=== PATIENT | male | born 1980 | race Caucasian/White ===

== ENCOUNTER → 2017-05-26 08:58 | Outpatient (CLI) | payer OTHER, SELFPAY ==
--- NOTE | 2017-05-26 09:01 | RAD_ITS ---
STUDY: X-RAY - ESOPHAGUS (BARIUM SWALLOW) WITH FLUOROSCOPY REASON FOR EXAM: Male, 37 years old. Dysphagia. TECHNIQUE: 21 view(s) of the esophagus were obtained following swallowing of barium. FLUOROSCOPY TIME (if supplied): (0:30) minutes/seconds COMPARISON: None. FINDINGS: There is no demonstrated esophageal foreign body. There is no demonstrated stricture or mucosal abnormality. Normal gastroesophageal junction, without a demonstrated hiatal hernia. The patient ingest a 12 mm tablet of barium without any difficulty. Normal visualized aortic arch and descending thoracic aorta. Normal visualized pulmonary parenchyma. Normal visualized osseous structures of the thorax. Immediately following the procedure, the patient experienced a seizure. RAD/Esophagus Only IMPRESSION: Normal plain film x-ray examination (barium swallow) of the esophagus. Electronically Signed: Terry Riddle MD at 10:02 EST Tel [phone], Service support ,
== END ==
PROVIDERS: Family Provider Student in an Organized Health Care Education/Training Program; PCP Student in an Organized Health Care Education/Training Program; Visit Provider Otolaryngology Otolaryngology/Facial Plastic Surgery
DX: R13.10 Dysphagia, unspecified (principal)
CPT/HCPCS: 74220

== ENCOUNTER 2017-07-06 19:23 | Emergency (ER) | payer OTHER, SELFPAY ==
[2017-07-06 19:24] VITALS: BP 148/100; PULSE 126; RESP 20; TEMP 36.8; O2SAT 95; BMI 34.9
--- NOTE | 2017-07-06 19:33 | RAD_ITS ---
STUDY: X-RAY - LEFT HAND REASON FOR EXAM: Male, 37 years old. Fall TECHNIQUE: 3 view(s) of the hand. COMPARISON: None. FINDINGS: Normal radiocarpal articulation. Normal distal radioulnar joint. Normal visualized carpal bones. Normal carpal articulations Normal carpometacarpal articulation of the thumb. Normal second through fifth carpometacarpal joints. Normal metacarpi. Normal metacarpophalangeal joint of the thumb. Normal interphalangeal joint of the thumb. Normal proximal and distal phalanges of the thumb. Normal metacarpophalangeal joints of the second through fifth fingers. Normal proximal and distal interphalangeal joints of the second through fifth fingers. Normal phalanges of the second through fifth fingers. The soft tissue structures are unremarkable. RAD/Hand Min 3 Views IMPRESSION: Normal x-ray examination of the hand. Electronically Signed: Ellis Hernandez MD at 20:05 EDT , Service support ,
--- NOTE | 2017-07-06 19:33 | RAD_ITS ---
STUDY: X-RAY - LEFT WRIST REASON FOR EXAM: Male, 37 years old. Fall TECHNIQUE: 3 view(s) of the wrist were obtained. COMPARISON: None. FINDINGS: Normal visualized distal radius and ulna. Normal radiocarpal articulation. Normal distal radioulnar articulation. Normal carpal bones. Normal carpal articulations. Normal carpometacarpal articulation of the thumb. Normal second through fifth carpometacarpal articulations. Normal visualized metacarpal bones. The soft tissue structures are unremarkable. RAD/Wrist min 3 Views IMPRESSION: Normal x-ray examination of the wrist. Electronically Signed: Ellis Hernandez MD at 20:05 EDT , Service support ,
--- NOTE | 2017-07-06 19:40 | RAD_ITS ---
STUDY: X-RAY - LEFT RADIUS AND ULNA REASON FOR EXAM: Male, 37 years old. Fall TECHNIQUE: 3 view(s) of the forearm. COMPARISON: None. FINDINGS: There is no demonstrated soft tissue swelling. Anterior humeral line and radiocapitellar line are preserved. Normal visualized radius. Normal visualized ulna. RAD/Forearm 2 Views IMPRESSION: Normal x-ray examination of the radius and ulna. Electronically Signed: Ellis Hernandez MD at 20:04 EDT , Service support ,
--- NOTE | 2017-07-06 20:25 | ED.VISSUMM ---
- ER Visit Summary Date of Service: 07/06/17 Chief Complaint: Left wrist injury History of Present Illness: The patient is a 37 M presenting for evaluation secondary to left wrist injury. Patient was roller skating today and suffered a fall onto left outstretched hand. Denies hitting his head or loss of consciousness. Patient states that he feels popping and cracking in his wrist when he tries to range it. Denies any other injuries. Physical Examination: Primary survey: Airway is patent, breath sounds equal bilateral, central peripheral pulses 2+ and symmetric, GCS 15 out of 15. Vitals within normal limits. Secondary survey: General: Well-nourished well-developed no acute distress Head: Normocephalic atraumatic Eyes: PERRLA, EOMI ENT: TMs clear no hemotympanum no drainage Neck: Nontender full range of motion, no step-offs noted Heart: Regular rate and rhythm no murmurs Lungs: Respirations nondistressed, lung sounds clear to auscultation bilaterally, chest nontender, normal chest excursion bilaterally Abdomen: Soft nontender nondistended normal bowel sounds no palpable abdominal masses Back: Nontender no step-offs noted Extremities: Examination of the patient's left upper extremity shows some diffuse edema over the wrist and hand with diffuse tenderness palpation that is nonlocalizing. Sensation intact distally with normal capillary refill and normal pulses. Skin: Normal color no trauma Neuro: Alert and oriented ?4, GCS 15 out of 15, no lateralizing neurological deficits. Test Results: Wrist, forearm, and hand x-rays negative per radiology Emergency Department Course and Treatment: Patient presented secondary to a fall on outstretched hand. Radiographs found to be negative. Patient does seem to have some pain over his anatomical snuffbox is or is at least some concern for the possibility of an occult scaphoid injury. Patient will be placed on a thumb spica splint and instructed to follow-up for repeat x-rays in 10-14 days. Disposition: Discharge Impression: 1. Left wrist sprain secondary to roller skating injury This note was generated with [employer] dictation software. It may contain incorrect words, spelling, and punctuation that were not noted in review of the chart prior to signing ED Disposition - Plan for ED Patient: Disposition: Home or Assisted Living Chief Complaint: Upper Extremity Injury Diagnosis: Left wrist sprain Instructions: ED Fx Wrist Navicular Poss Referrals: Colin Mccollum DO [Primary Care Provider] - 1-2 Weeks
--- NOTE | 2017-07-06 20:36 | ED.DCSUM_ITS ---
- ER Visit Summary Date of Service: 07/06/17 Chief Complaint: Left wrist injury History of Present Illness: The patient is a 37 M presenting for evaluation secondary to left wrist injury. Patient was roller skating today and suffered a fall onto left outstretched hand. Denies hitting his head or loss of consciousness. Patient states that he feels popping and cracking in his wrist when he tries to range it. Denies any other injuries. Physical Examination: Primary survey: Airway is patent, breath sounds equal bilateral, central peripheral pulses 2+ and symmetric, GCS 15 out of 15. Vitals within normal limits. Secondary survey: General: Well-nourished well-developed no acute distress Head: Normocephalic atraumatic Eyes: PERRLA, EOMI ENT: TMs clear no hemotympanum no drainage Neck: Nontender full range of motion, no step-offs noted Heart: Regular rate and rhythm no murmurs Lungs: Respirations nondistressed, lung sounds clear to auscultation bilaterally , chest nontender, normal chest excursion bilaterally Abdomen: Soft nontender nondistended normal bowel sounds no palpable abdominal masses Back: Nontender no step-offs noted Extremities: Examination of the patient's left upper extremity shows some diffuse edema over the wrist and hand with diffuse tenderness palpation that is nonlocalizing. Sensation intact distally with normal capillary refill and normal pulses. Skin: Normal color no trauma Neuro: Alert and oriented ?4, GCS 15 out of 15, no lateralizing neurological deficits. Test Results: Wrist, forearm, and hand x-rays negative per radiology Emergency Department Course and Treatment: Patient presented secondary to a fall on outstretched hand. Radiographs found to be negative. Patient does seem to have some pain over his anatomical snuffbox is or is at least some concern for the possibility of an occult scaphoid injury. Patient will be placed on a thumb spica splint and instructed to follow-up for repeat x-rays in 10-14 days. Disposition: Discharge Impression: 1. Left wrist sprain secondary to roller skating injury This note was generated with [employer] dictation software. It may contain incorrect words, spelling, and punctuation that were not noted in review of the chart prior to signing ED Disposition - Plan for ED Patient: Disposition: Home or Assisted Living Chief Complaint: Upper Extremity Injury Diagnosis: Left wrist sprain Instructions: ED Fx Wrist Navicular Poss Referrals: Colin Mccollum DO [Primary Care Provider] - 1-2 Weeks
== END 2017-07-06 20:55 | disposition home or self-care (01) ==
PROVIDERS: Emergency Provider Emergency Medicine; Family Provider Student in an Organized Health Care Education/Training Program; PCP Student in an Organized Health Care Education/Training Program
DX: S63.502A Unspecified sprain of left wrist, initial encounter (principal); R56.9 Unspecified convulsions; Z79.899 Other long term (current) drug therapy; W18.30XA Fall on same level, unspecified, initial encounter; Y93.51 Activity, roller skating (inline) and skateboarding; Y92.89 Other specified places as the place of occurrence of the external cause; Y99.8 Other external cause status
CPT/HCPCS: 73090; 73110; 73130; 99283

== ENCOUNTER 2017-11-06 22:11 | Emergency (ER) | payer OTHER, SELFPAY ==
[2017-11-06 22:12] VITALS: BP 143/88; PULSE 88; RESP 18; TEMP 36.8; O2SAT 98; BMI 33.9
--- NOTE | 2017-11-06 22:50 | RAD_ITS ---
STUDY: X-RAY - LEFT KNEE REASON FOR EXAM: Male, 37 years old. Pain TECHNIQUE: 4 view(s) of the knee. COMPARISON: Previous study of 01/01/2017 FINDINGS: Normal visualized distal femur. Normal visualized proximal tibia and fibula. Normal proximal tibiofibular articulation. There is mild joint space narrowing of the medial knee compartment. Normal lateral femorotibial compartment. Normal patellofemoral articulation. The soft tissue structures are unremarkable. RAD/Knee 4 or More Views IMPRESSION: Mild joint space narrowing of the medial knee compartment. Electronically Signed: Qamar Diego MD at 23:15 EDT , Service support ,
--- NOTE | 2017-11-06 23:29 | ED.DCSUM_ITS ---
- ER Visit Summary Date of Service: 11/06/17 Chief Complaint: Left knee pain History of Present Illness: The patient is a 37 M who presents with left knee pain. It is been present for about 1 month. However it was worse tonight. He does note that he has to bend over a lot for work. He denies paresthesias weakness loss of function. No specific injury that he recalls. Physical Examination: Afebrile vitals are normal Heart regular Patient has active full range of motion of the left knee there is no appreciable effusion he has focal tenderness to the quadriceps tendon indicates this is where his pain is greatest he has an easily palpable dorsalis pedis pulse with brisk capillary refill and normal sensation light touch Test Results: Knee x-ray shows mild joint space narrowing of the medial compartment Emergency Department Course and Treatment: Knee x-ray is essentially unremarkable. Patient does have focal tenderness along the quadriceps tendon. I do think this is related to quadriceps strain. He was given an Ravi wrap. He was instructed on supportive care. He was given a prescription for naproxen. He was advised on rest ice and elevation. He understands return for new or worsening symptoms otherwise to follow-up as an outpatient he was discharged home. Treatment Plan: [] Disposition: Discharge Impression: Left quadriceps strain This note was generated with [employer] dictation software. It may contain incorrect words, spelling, and punctuation that were not noted in review of the chart prior to signing ED Disposition - Plan for ED Patient: Chief Complaint: Lower Extremity Injury Referrals: Colin Mccollum DO [Primary Care Provider] -
--- NOTE | 2017-11-06 23:29 | ED.DEP ---
ED Disposition - Plan for ED Patient: Chief Complaint: Lower Extremity Injury Instructions: ED Strain Muscle Ext Prescriptions: Naproxen [Naprosyn] 500 mg PO BID #20 tab Referrals: Colin Mccollum DO [Primary Care Provider] -
[2017-11-06 23:39] VITALS: RESP 16
--- NOTE | 2017-11-06 23:39 | ED.RN ---
REVIEWED D/C INSTRUCTIONS, FOLLOW UP CARE, PRESCRIPTION, AND S/S THAT WOULD WARRANT A RETURN TO THE ED WITH PT. PT VERBALIZED AN UNDERSTANDING AND DENIES FURTHER QUESTIONS FOR THIS RN. PT SKIN P/W/D, RESP EVEN AND UNLABORED, PT A&O X 3, NO DISTRESS NOTED. PT AMBULATED OUT OF ED, GAIT STEADY.
== END 2017-11-06 23:41 | disposition home or self-care (01) ==
PROVIDERS: Emergency Provider Emergency Medicine; Family Provider Student in an Organized Health Care Education/Training Program; PCP Student in an Organized Health Care Education/Training Program
DX: S76.112A Strain of left quadriceps muscle, fascia and tendon, initial encounter (principal); Z79.899 Other long term (current) drug therapy; X50.3XXA Overexertion from repetitive movements, initial encounter; X50.1XXA Overexertion from prolonged static or awkward postures, initial encounter; Y93.89 Activity, other specified; Y92.89 Other specified places as the place of occurrence of the external cause; Y99.0 Civilian activity done for income or pay
CPT/HCPCS: 73564; 99282

== ENCOUNTER 2018-05-22 11:38 | Emergency (ER) | payer OTHER, SELFPAY ==
[2018-05-22 11:40] VITALS: BP 157/93; PULSE 71; RESP 18; TEMP 36.7; O2SAT 99; BMI 33.2
--- NOTE | 2018-05-22 12:26 | NURSING ---
PT LEFT WITHOUT BEING SEEN, DID NOT WANT TO WAIT FOR
--- NOTE | 2018-05-22 12:31 | ED.VISSUMM ---
- ER Visit Summary Date of Service: 05/22/18 Chief Complaint: Patient left prior to being seen or discharge. History of Present Illness: The patient is a 38 M [] Physical Examination: [] Test Results: [] Emergency Department Course and Treatment: [] Treatment Plan: [] Disposition: [] Impression: Left prior to evaluation No ER physician charge This note was generated with [employer] dictation software. It may contain incorrect words, spelling, and punctuation that were not noted in review of the chart prior to signing ED Disposition - Plan for ED Patient: Chief Complaint: Head Injury Referrals: Colin Mccollum DO [Primary Care Provider] -
== END 2018-05-22 12:33 | disposition left against medical advice (07) ==
LOC: ED 12:29
PROVIDERS: Emergency Provider Emergency Medicine; Family Provider Student in an Organized Health Care Education/Training Program; PCP Student in an Organized Health Care Education/Training Program
DX: R51 Headache (principal)
CPT/HCPCS: 99281

== ENCOUNTER 2018-07-01 10:19 | Emergency (ER) | payer OTHER, SELFPAY ==
[2018-07-01 10:20] VITALS: BP 150/102; BP 180/88; PULSE 95; RESP 17; TEMP 36.7; O2SAT 98; BMI 37.0
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
== END 2018-07-01 11:36 | disposition home or self-care (01) ==
PROVIDERS: Emergency Provider Emergency Medicine; Family Provider Student in an Organized Health Care Education/Training Program; PCP Student in an Organized Health Care Education/Training Program
DX: S16.1XXA Strain of muscle, fascia and tendon at neck level, initial encounter (principal); S39.012A Strain of muscle, fascia and tendon of lower back, initial encounter; F20.9 Schizophrenia, unspecified; Z79.899 Other long term (current) drug therapy; V43.52XA Car driver injured in collision with other type car in traffic accident, initial encounter; Y93.I9 Activity, other involving external motion; Y92.410 Unspecified street and highway as the place of occurrence of the external cause; Y99.8 Other external cause status
CPT/HCPCS: 72040; 72100; 99284

== ENCOUNTER 2018-07-15 10:19 | Emergency (ER) | payer OTHER, SELFPAY ==
[2018-07-15 10:20] VITALS: BP 145/115; PULSE 114; RESP 18; TEMP 36.7; O2SAT 98; BMI 33.2
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
--- NOTE | 2018-07-15 10:39 | ED.VIS.GEN ---
History of Present Illness Chief Complaint: Confusion Informant: Patient Onset: Today Context: Sudden Onset - after turning head/body while standing to talk to his Quality: see below Location: head Current Severity: Mild Maximum Severity: Severe Worsened by: changing position/turning head Relieved by: remaining still Associated Symptoms: anxiety. mild frontal headache. tingling in toes only. Narrative: Patient states he has a history of panic disorder and PTSD, he was in hindu suddenly turned to talk to his and states that all of a sudden he felt like he became disconnected with himself and lost his life. He states he immediately felt dizziness and a sensation of movement, when walking he felt off balance. It made him feel very bad in general. He had no focal peripheral neurologic symptoms until after he became very anxious and developed some mild tingling in his toes that are improved now. He took an Ativan, states that overall he is improved but still has some of the dizziness symptoms when he turns his head. States he was diagnosed with influenza 1-2 weeks ago and was treated with Tamiflu. States he is better now. He has no ear pain or tinnitus or discharge from his ears. He does have a mild headache, no neck pain. He had no loss of/lapse in consciousness. He denies any chest or abdominal symptoms. He is not an alcoholic. Capacity - Capacity Assessment Tool Can the patient make a choice & communicate that choice?: Yes Can the patient understand benefits, risks and alternatives?: Yes Can the patient make a logical, rational choice?: Yes Is the choice the patient makes consistent w/ their values?: Yes Is there an impending, emergent risk to the patient?: No Does the patient have an Advance Directive?: No Is there a Surrogate Available?: Yes i.e. close relative (spouse, child, parent, sibling)?: Yes - Present during HPI/exam/explanations - Past Medical History (1) Post traumatic stress disorder (PTSD) Status: Chronic (2) Anxiety Status: Chronic Past Medical History - Allergies and Home Meds Allergies/Adverse Reactions: Allergies adhesive tape Allergy (Verified 07/15/18 10:22) Rash Milk Containing Products Adverse Reaction (Verified 07/15/18 10:22) Diarrhea Primary Care Physician: Colin Mccollum DO [Primary Care Provider] - Lives: With Family Smoking Status: Never smoker Review of Systems General: Reports: Malaise. Denies: Chills, Fever, Sweats Eyes: Denies: Visual changes - bilaterally, Diplopia ENT: Denies: Rhinorrhea, Sore throat Cardiovascular: Denies: Chest pain, Palpitations Respiratory: Denies: Dyspnea, Cough, Dyspnea on exertion Gastrointestinal: Denies: Abdominal pain, Nausea, Vomiting, Diarrhea, Melena, Hematochezia Genitourinary: Denies: Dysuria, Hematuria, Frequency Musculoskeletal: Denies: Neck pain, Back pain, Extremity Pain Skin: Denies: Rash, Wounds Neurological: Reports: Headache, Parasthesia, - - dizziness. see HPI.. Denies: Weakness Psych: Reports: Anxiety. Denies: Suicidal thoughts Physical Exam Vital Signs/Narrative: Vital Signs Temp Pulse Resp BP Pulse Ox 07/15/18 10:20 98.1 F 114 H 18 145/115 H 98 Inital Vital Signs reviewed: Yes General: Well nourished, Well developed, No Acute Distress Head: Normocephalic, Atraumatic Eyes: Perrl, EOMI - +horiz nystagmus bilat, and is somewhat rotatory when present. no vertical nystagmus. ENT: Moist mucous membranes, No rhinorrhea, TM's clear. Negative for: Nasal congestion Neck: Supple, Nontender, No lymphadenopathy, No JVD, - - no carotid bruits. Cardiovascular: Regular rate, Regular rhythm, No murmurs, Normal S1, Normal S2. Negative for: Tachycardia Respiratory: No distress, CTA bilaterally, Chest nontender Abdomen: Soft, Nontender, Nondistended, Normal bowel sounds Back: Nontender, Normal Inspection Extremities: Nontender, No edema Skin: Normal color, No rash Neurological: Alert, Oriented x3, Cranial nerves II-XII grossly intact, Normal Strength, Normal Sensation, Normal DTR, Normal Gait, - - normal Romberg. Normal FTN and HTS bilat. Psychological: Normal affect, Normal Mood Diagnostic/Tx/Re-eval Impressions Brain CT 07/15/18 10:39 IMPRESSION: Normal unenhanced CT scan of the brain. Mild chronic sinusitis. Electronically Signed: Bridgett Neely MD at 11:40 EDT Tel , Service support , 07/15/18 10:39 Brain/Head without Contrast [CT] Stat Laboratory Results 07/15/18 10:55 Sodium 139 Potassium 4.1 Chloride 107 Carbon Dioxide 27.0 Anion Gap 5 BUN 13 Creatinine 0.98 Estim Creat Clear Calc 113.28 Est GFR (MDRD) Af Amer 110 Est GFR (MDRD) Non-Af 91 BUN/Creatinine Ratio 13.2 Glucose 114 H Calcium 9.1 - Medical Decision Making Labs and brain imaging are unremarkable. Patient was given a meclizine and continues to feel little better. The Ativan that he took is actually good treatment for peripheral vertigo which is probably why he was doing so much better upon arrival to the ER. I reassure him. I think this was likely peripheral vertigo caused by reactive vestibular neuronitis. Will prescribe him meclizine, advised that he may also use his Lorazepam for further symptoms if needed, and to follow-up with his doctor if it persists. He is comfortable with this plan. ED Disposition - Plan for ED Patient: Disposition: Home or Assisted Living Diagnosis: Peripheral vertigo, unspecified, Anxiety Instructions: Understanding Dizziness, Balance Problems, and Fainting, ED Vertigo Unspecified Prescriptions: Meclizine HCl 25 mg PO Q8H PRN #16 tab PRN Reason: Vertigo Referrals: Colin Mccollum DO [Primary Care Provider] - 1 Week if not improving
--- NOTE | 2018-07-15 10:43 | ED.DCSUM_ITS ---
History of Present Illness Chief Complaint: Confusion Informant: Patient Onset: Today Context: Sudden Onset - after turning head/body while standing to talk to his Quality: see below Location: head Current Severity: Mild Maximum Severity: Severe Worsened by: changing position/turning head Relieved by: remaining still Associated Symptoms: anxiety. mild frontal headache. tingling in toes only. Narrative: Patient states he has a history of panic disorder and PTSD, he was in rastafarian suddenly turned to talk to his and states that all of a sudden he felt like he became disconnected with himself and lost his life. He states he immediately felt dizziness and a sensation of movement, when walking he felt off balance. It made him feel very bad in general. He had no focal peripheral neurologic symptoms until after he became very anxious and developed some mild tingling in his toes that are improved now. He took an Ativan, states that overall he is improved but still has some of the dizziness symptoms when he turns his head. States he was diagnosed with influenza 1-2 weeks ago and was treated with Tamiflu. States he is better now. He has no ear pain or tinnitus or discharge from his ears. He does have a mild headache, no neck pain. He had no loss of/lapse in consciousness. He denies any chest or abdominal symptoms. He is not an alcoholic. Capacity - Capacity Assessment Tool Can the patient make a choice & communicate that choice?: Yes Can the patient understand benefits, risks and alternatives?: Yes Can the patient make a logical, rational choice?: Yes Is the choice the patient makes consistent w/ their values?: Yes Is there an impending, emergent risk to the patient?: No Does the patient have an Advance Directive?: No Is there a Surrogate Available?: Yes i.e. close relative (spouse, child, parent, sibling)?: Yes - Present during HPI/exam/explanations - Past Medical History (1) Post traumatic stress disorder (PTSD) Status: Chronic (2) Anxiety Status: Chronic Past Medical History - Allergies and Home Meds Allergies/Adverse Reactions: Allergies adhesive tape Allergy (Verified 07/15/18 10:22) Rash Milk Containing Products Adverse Reaction (Verified 07/15/18 10:22) Diarrhea Primary Care Physician: Colin Mccollum DO [Primary Care Provider] - Lives: With Family Smoking Status: Never smoker Review of Systems General: Reports: Malaise. Denies: Chills, Fever, Sweats Eyes: Denies: Visual changes - bilaterally, Diplopia ENT: Denies: Rhinorrhea, Sore throat Cardiovascular: Denies: Chest pain, Palpitations Respiratory: Denies: Dyspnea, Cough, Dyspnea on exertion Gastrointestinal: Denies: Abdominal pain, Nausea, Vomiting, Diarrhea, Melena, Hematochezia Genitourinary: Denies: Dysuria, Hematuria, Frequency Musculoskeletal: Denies: Neck pain, Back pain, Extremity Pain Skin: Denies: Rash, Wounds Neurological: Reports: Headache, Parasthesia, - - dizziness. see HPI.. Denies: Weakness Psych: Reports: Anxiety. Denies: Suicidal thoughts Physical Exam Vital Signs/Narrative: Vital Signs Temp Pulse Resp BP Pulse Ox 07/15/18 10:20 98.1 F 114 H 18 145/115 H 98 Inital Vital Signs reviewed: Yes General: Well nourished, Well developed, No Acute Distress Head: Normocephalic, Atraumatic Eyes: Perrl, EOMI - +horiz nystagmus bilat, and is somewhat rotatory when present. no vertical nystagmus. ENT: Moist mucous membranes, No rhinorrhea, TM's clear. Negative for: Nasal congestion Neck: Supple, Nontender, No lymphadenopathy, No JVD, - - no carotid bruits. Cardiovascular: Regular rate, Regular rhythm, No murmurs, Normal S1, Normal S2. Negative for: Tachycardia Respiratory: No distress, CTA bilaterally, Chest nontender Abdomen: Soft, Nontender, Nondistended, Normal bowel sounds Back: Nontender, Normal Inspection Extremities: Nontender, No edema Skin: Normal color, No rash Neurological: Alert, Oriented x3, Cranial nerves II-XII grossly intact, Normal Strength, Normal Sensation, Normal DTR, Normal Gait, - - normal Romberg. Normal FTN and HTS bilat. Psychological: Normal affect, Normal Mood Diagnostic/Tx/Re-eval Impressions Brain CT 07/15/18 10:39 IMPRESSION: Normal unenhanced CT scan of the brain. Mild chronic sinusitis. Electronically Signed: Bridgett Neely MD at 11:40 EDT Tel , Service support , 07/15/18 10:39 Brain/Head without Contrast [CT] Stat Laboratory Results 07/15/18 10:55 Sodium 139 Potassium 4.1 Chloride 107 Carbon Dioxide 27.0 Anion Gap 5 BUN 13 Creatinine 0.98 Estim Creat Clear Calc 113.28 Est GFR (MDRD) Af Amer 110 Est GFR (MDRD) Non-Af 91 BUN/Creatinine Ratio 13.2 Glucose 114 H Calcium 9.1 - Medical Decision Making Labs and brain imaging are unremarkable. Patient was given a meclizine and c ontinues to feel little better. The Ativan that he took is actually good treatment for peripheral vertigo which is probably why he was doing so much better upon arrival to the ER. I reassure him. I think this was likely peripheral vertigo caused by reactive vestibular neuronitis. Will prescribe him meclizine, advised that he may also use his Lorazepam for further symptoms if needed, and to follow-up with his doctor if it persists. He is comfortable with this plan. ED Disposition - Plan for ED Patient: Disposition: Home or Assisted Living Diagnosis: Peripheral vertigo, unspecified, Anxiety Instructions: Understanding Dizziness, Balance Problems, and Fainting, ED Verti go Unspecified Prescriptions: Meclizine HCl 25 mg PO Q8H PRN #16 tab PRN Reason: Vertigo Referrals: Colin Mccollum DO [Primary Care Provider] - 1 Week if not improving
[2018-07-15] MEDS: Meclizine HCl 25 MG Tablet PO (11:01)
[2018-07-15 11:31] LABS: Anion Gap 5 (5-15); BUN 13 mg/dL (7-18); BUN/Creat Ratio 13.2 RATIO (10-20); Calcium,Total 9.1 mg/dL (8.5-10.1); Chloride 107 mmol/L (98-107); Creatinine, Serum 0.98 mg/dL (0.70-1.30); EST Glomerular Filtration Rate 91 mL/min (>60); Est Glom Filt Rate - Afr Amer 110 mL/min (>60); Estimated Creatinine Clearance 113.28 ml/min; Glucose 114 mg/dL (74-106); Potassium 4.1 mmol/L (3.5-5.1); Sodium Level 139 mmol/L (136-145)
[2018-07-15 12:22] VITALS: BP 152/98; PULSE 71; RESP 14; O2SAT 98
== END 2018-07-15 12:23 | disposition home or self-care (01) ==
PROVIDERS: Emergency Provider Emergency Medicine; Family Provider Student in an Organized Health Care Education/Training Program; PCP Student in an Organized Health Care Education/Training Program
DX: H81.399 Other peripheral vertigo, unspecified ear (principal); F41.9 Anxiety disorder, unspecified; F43.10 Post-traumatic stress disorder, unspecified; Z79.51 Long term (current) use of inhaled steroids; Z79.899 Other long term (current) drug therapy
CPT/HCPCS: 70450; 80048; 99284; A4216

== ENCOUNTER 2018-12-11 23:57 | Emergency (ER) | payer OTHER, SELFPAY ==
[2018-12-11 23:58] VITALS: BP 153/74; PULSE 84; RESP 18; TEMP 36.1; O2SAT 95; BMI 30.1
--- NOTE | 2018-12-12 00:09 | ED.RN ---
Addendum entered by Gretta Allred 12/12/18 00:25: HRO, OFFICER ANA INFORMED OF PT'S TRIAGE NOTE AND WILL FOLLOW UP WITH CRISIS AT THIS TIME. RUTH MILES,RN, CHARGE NURSE AWARE OF SAME. Original Note: PT WAS SITTING IN TRIAGE WAITING FOR HIS ROOM WHEN PT GOT UP OUT OF CHAIR I'M LEAVING WHEN TOLD THE ROOM IS ALMOST READY PT STATED WELL I'M LEAVING AND LEFT THE BUILDING.
== END 2018-12-12 00:15 | disposition left against medical advice (07) ==
LOC: ED 12-12 01:15
PROVIDERS: Emergency Provider Emergency Medicine; Family Provider Student in an Organized Health Care Education/Training Program; PCP Student in an Organized Health Care Education/Training Program
DX: F41.9 Anxiety disorder, unspecified (principal)

== ENCOUNTER 2019-01-15 19:26 | Emergency (ER) | payer OTHER, SELFPAY ==
[2019-01-15 19:27] VITALS: BP 154/84; PULSE 101; RESP 18; TEMP 37; O2SAT 96; BMI 34.6
--- NOTE | 2019-01-15 20:10 | RAD_ITS ---
STUDY: X-RAY - RIGHT KNEE REASON FOR EXAM: Male, 38 years old. Right knee injury TECHNIQUE: 4 view(s) of the knee. COMPARISON: None. FINDINGS: Normal visualized distal femur. Normal visualized proximal tibia and fibula. Normal proximal tibiofibular articulation. Normal medial femorotibial compartment. Normal lateral femorotibial compartment. Normal patellofemoral articulation. The soft tissue structures are unremarkable. RAD/Knee 4 or More Views IMPRESSION: Normal x-ray examination of the knee. Electronically Signed: Micah Mcleod MD at 20:41 EDT , Service support ,
--- NOTE | 2019-01-15 21:32 | ED.VISSUMM ---
- ER Visit Summary Date of Service: 01/15/19 Chief Complaint: [Injury to her right knee] History of Present Illness: The patient is a 38 M [to the emergency department with pain in his right knee that started this afternoon. Patient apparently was walking when he had a nonepileptic seizure which caused him to fall and injure his right knee. Patient was unable to bear weight afterwards and EMS brought him in for evaluation. Patient has a history of nonepileptic seizures as well as posttraumatic stress disorder as well as ADHD and depression. Patient is not sure exactly what happened to the knee.] Physical Examination: [HEENT-PERRLA, EOMI. Cranial nerves II through XII grossly intact. TMs clear. Mucous membranes moist. No adenopathy. No external evidence of trauma to his head. Patient has no C-spine tenderness on palpation. Cardiovascular-regular rate and rhythm without murmur or ectopy Lungs-clear to auscultation, chest wall stable without crepitus or subcu emphysema Abdomen-normoactive bowel sounds, soft, nontender, no rebound or rigidity, no peritoneal signs. Neuro [id number] and heel brothers testing within normal limits, negative Romberg, negative , Fundi benign. Extremities-intact ?4, normal range of motion, normal pulses. Right knee-patient has tenderness palpation over the lateral joint line of the knee. He is able to flex and extend the knee without difficulty. No effusion noted. There is some subtle bruising noted to the lateral aspect of the knee. Neurovascular intact distally.] Test Results: [X-rays of the right knee obtained were normal.] Emergency Department Course and Treatment: [Was placed in a knee immobilizer and given crutches.] Treatment Plan: [Follow-up with orthopedics within next 5 to 7 days. You may also follow-up with his primary care physician within next 5 to 7 days.] Disposition: [Discharged home in stable condition] Impression: [Right knee contusion/sprain-possible internal derangement] This note was generated with [employer] dictation software. It may contain incorrect words, spelling, and punctuation that were not noted in review of the chart prior to signing ED Disposition - Plan for ED Patient: Referrals: Colin Mccollum DO [Primary Care Provider] -
--- NOTE | 2019-01-15 21:34 | ED.DEP ---
ED Disposition - Plan for ED Patient: Instructions: CONTUSION, Lower Extremity, KNEE PAIN, Meniscus Injury (Possible) Referrals: Colin Mccollum DO [Primary Care Provider] - 5-7 Days Mckayla Landa DO [STAFF PHYSICIAN] - 5-7 Days
[2019-01-15 21:55] VITALS: BP 166/96; PULSE 80; RESP 16
== END 2019-01-15 21:55 | disposition home or self-care (01) ==
PROVIDERS: Emergency Provider Emergency Medicine; Family Provider Student in an Organized Health Care Education/Training Program; PCP Student in an Organized Health Care Education/Training Program
DX: S80.01XA Contusion of right knee, initial encounter (principal); S83.91XA Sprain of unspecified site of right knee, initial encounter; F43.10 Post-traumatic stress disorder, unspecified; F32.9 Major depressive disorder, single episode, unspecified; F90.9 Attention-deficit hyperactivity disorder, unspecified type; R56.9 Unspecified convulsions; Z79.899 Other long term (current) drug therapy; W18.30XA Fall on same level, unspecified, initial encounter; Y93.01 Activity, walking, marching and hiking; Y92.89 Other specified places as the place of occurrence of the external cause; Y99.8 Other external cause status
CPT/HCPCS: 73564; 99285

== ENCOUNTER 2019-02-28 22:36 | Emergency (ER) | payer OTHER, SELFPAY ==
[2019-02-28 22:37] VITALS: BP 134/82; PULSE 101; RESP 16; TEMP 37.1; O2SAT 97; BMI 34.7
[2019-02-28 22:43] VITALS: TEMP 37.1
--- NOTE | 2019-02-28 22:52 | EKG12_ITS ---
Test Reason : CHEST TIGHTNESS Blood Pressure : / mmHG Vent. Rate : 089 BPM Atrial Rate : 089 BPM P-R Int : 180 ms QRS Dur : 088 ms QT Int : 354 ms P-R-T Axes : 027 -49 025 degrees QTc Int : 430 ms Normal sinus rhythm Left anterior fascicular block Minimal voltage criteria for LVH, may be normal variant Abnormal ECG Confirmed by JAMEE LOPEZ, NISHA ([id number]), avid editor HERMINIA CORONA ([id number]) on 03/06/2019 8:41:33 AM Referred By: CHASE Confirmed By:NISHA MANCUSO MD
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
[2019-02-28 23:13] VITALS: RESP 18
== END 2019-02-28 23:14 | disposition home or self-care (01) ==
LOC: ED 23:08
PROVIDERS: Emergency Provider Emergency Medicine; Family Provider Student in an Organized Health Care Education/Training Program; PCP Student in an Organized Health Care Education/Training Program
DX: F41.1 Generalized anxiety disorder (principal)
CPT/HCPCS: 93005; 99284

== ENCOUNTER 2019-05-21 09:00 | Outpatient (RCR) | payer OTHER, SELFPAY ==
--- NOTE | 2019-05-21 09:10 | BH.SGPN.GN ---
Behaviors/Verbalizations/Mental Status: [] Pt eye contact good, casually dressed, motor activity restless, speech normal rate and tone, mood anxious, congruent affect, thoughts linear and intact, no evidence of delusions or hallucinations. Client Response/Progress/Benefit: [] Patient responded well to session as evidenced by him listening attentively to peers and openly sharing his thoughts and feelings. Patient reported he has been struggling with high levels of stress which resulted in him having seizure-like experiences that are nonepileptic. Patient shared he has a history of trauma that contributed to his seizure behavior. 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 Patient stated he chose to get help because wants things to be better in his life. Patient identified current stressor is trying to manage a blended family because his can get jealous of how much time he spends with his children from different relationships. Patient identified current emotion as on edge. Patient's first day in IOP. Patient to continue IOP level of care to increase healthy coping skills, improve emotional regulation, and prevent decompensation. Narrative Note: []
--- NOTE | 2019-05-21 10:16 | BH.SGPN.GN ---
Behaviors/Verbalizations/Mental Status: []Client alert and oriented, casually dressed and groomed. Eye contact good. Motor activity appropriate. Speech within normal limits. Affect congruent, mood anxious and depressed. Thoughts linear, logical, no signs of hallucinations or delusions. Client Response/Progress/Benefit: []Pt new to IOP tx and did well to remain an engaged participant throughout group session AEB pt contributing some thoughts during discussion and taking notes throughout. Pt attentive as group defined coping skills and expressed agreement that there can be both positive and negative means of coping. He worked with group to identify unhealthy coping skills which included: substance use, avoidance, sleep, violence/aggression, isolation, and procrastination. Pt worked group to identify potential consequences of using unhealthy coping which included: problems getting worse, hurting other?s feelings, additional stressors developing, and problems not being solved. Pt seemed to benefit from increased awareness of importance of increasing healthy coping skills and consequences of utilizing unhealthy coping skills. During activity pt took a mostly active participatory role through giving ideas, being willing to take direction, and continuing to participate despite several setbacks experienced. Pt to continue IOP level of care to improve identification and application of healthy coping skills, increase ability to challenge distorted thoughts, and reduce depression. Narrative Note: []
--- NOTE | 2019-05-21 11:15 | BH.SGPN.GN ---
Behaviors/Verbalizations/Mental Status: []Client alert and oriented, casually dressed and groomed. Eye contact good. Motor activity appropriate. Speech within normal limits. Affect congruent, mood dysthymic. Thoughts linear, logical, no signs of hallucinations or delusions. Client Response/Progress/Benefit: []Client responded well to session, taking notes and participating in discussion. Client appeared to connect with the activity from second group and listened as the group worked to identify benefits of having a strong foundation of internal and external coping skills. Client actively contributing as the group discussed the different categories of coping skills which included distraction, emotional release, grounding, self-love, and thought challenging. Client provided examples for each and acknowledged the importance to having a variety of coping skills. Client created a coping skills ?menu? for the five categories of coping skills. Client identified his coping skills to include; reading, doing more hands on things, practicing positive self-talk, treating himself, and reminding himself ?you can get through this.? Client appeared to benefit from increasing his repertoire of healthy coping skills. Client?s first day of IOP. Will continue IOP tx to prevent decompensation, maintain safety, and improve daily functioning. Narrative Note: []
--- NOTE | 2019-05-22 08:17 | BH.COMM ---
Communication Note - Communication with Client Communication Note: Pt missed his transportation this AM therefore will not be into IOP. He was scheduled to see psychiatry this AM which he will miss. Spoke with pt over the phone. No distress and appears to have simply overslept.
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
== END 2019-05-24 23:59 | disposition home or self-care (01) ==
LOC: BHIOP 09:00
PROVIDERS: PCP Student in an Organized Health Care Education/Training Program; Referring Provider Psychiatry & Neurology Psychiatry; Visit Provider Psychiatry & Neurology Psychiatry
DX: F33.2 Major depressive disorder, recurrent severe without psychotic features (principal); F90.9 Attention-deficit hyperactivity disorder, unspecified type; F43.10 Post-traumatic stress disorder, unspecified; Z91.5 Personal history of self-harm; Z62.810 Personal history of physical and sexual abuse in childhood; Z79.899 Other long term (current) drug therapy
CPT/HCPCS: H0035; 90853

== ENCOUNTER 2019-06-11 09:00 | Outpatient (RCR) | payer OTHER, SELFPAY ==
--- NOTE | 2019-06-11 09:00 | BH.COMM_ITS ---
Communication Note - Communication with Client Communication Note: Completed initial paperwork and pre-admission screening with pt. Agreeable to starting IOP today. Completed [place] suicide screening with low risk. Denies any suicidal ideations, plan, or intent in the past month.
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
--- NOTE | 2019-06-12 11:31 | BH.COMM ---
Communication Note - Communication with Client Communication Note: Pt reports that he had gotten a text regarding his daughter and needed to leave IOP early. States he is not sure exactly what is going on however has called transportation to pick him up. Will check in with patient this afternoon
[2019-06-12 12:49] VITALS: BP 126/78; PULSE 68; RESP 18; TEMP 36.9
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
--- NOTE | 2019-06-12 14:09 | BH.DR.ITP ---
Initial Treatment Plan - Patient Information Visit Information: ADMISSION DATE: EXPECTED LOS: 4-6 weeks - Problems/Symptoms Problem #1:: Depression Symptom:: Sadness, hopelessness, worthlessness, rumination Problem #2:: Anxiety Symptom:: worry, re-experiencing, avoidance, flashbacks
--- NOTE | 2019-06-18 09:00 | BH.SGPN.GN ---
Behaviors/Verbalizations/Mental Status: []Pt eye contact good, casually dressed, motor activity appropriate, speech normal rate and tone, mood anxious, congruent affect, thoughts linear and intact, no evidence of delusions or hallucinations. Reviewed client?s symptom tracker, no signs of suicidal ideation, plan, or intent as of today. Client Response/Progress/Benefit: []Pt responded well to session as evidenced by pt listening to peers and openly sharing thoughts and feelings. Pt reported a mental health positive is finding a debt relief program that has decreased financial stress significantly. Pt stated an additional mental health positive is changing his phone number so he can cut out the toxic relationships in his life. Pt reported current stressor is working with his ex- to figure out child support situation. Pt identified current emotion as overwhelmed because he is trying to focus on himself, but doesn't want to disappoint others. Pt seemed to benefit from support from peers. Pt to continue IOP to increase healthy coping, improve emotional regulation and prevent decompensation. Narrative Note: []
--- NOTE | 2019-06-18 10:06 | BH.SGPN.GN ---
Behaviors/Verbalizations/Mental Status: []Client alert and orient. Appearance casual and appropriately groomed. Speech an appropriate rate and tone. Motor activity WNL. Mood anxious, affect congruent to mood. No evidence of delusion or hallucinations.? Client Response/Progress/Benefit: []Pt receptive of session, engaged throughout the discussion on the importance of healthy communication and factors that can impact communication skills. Shared that communication has impacted his mental health and relationships with others in the past. Pt worked with the group to identify barriers to maintaining healthy communication which included: making assumptions, shutting down, not listening, and misinterpretations, and poor emotion regulation.?Pt indicated connecting with making assumptions and overthinking as a common communication barrier he experiences. Providing an example regarding communication with his . Discussed benefits of healthy communication on mental health and maintaining healthy relationships which included: personal growth, increased trust in relationships, improved self-confidence, and prevention of decompensation. Pt receptive of and appeared to benefit from psychoeducation portion discussing different styles of communication. Progress noted in pt ability to identify current communication barriers and impacts on mental health. Pt to continue in IOP tx to promote healthy change behaviors, improve emotion regulation, and prevent decompensation. Narrative Note: []
--- NOTE | 2019-06-18 12:10 | BH.MTP_ITS ---
Master Treatment Plan - Patient Information Program Physician:: Dr. Marla Rhoades Primary Therapist:: Lawrence Brennan [facility] - Psychiatric Diagnoses Psychiatric Diagnoses:: Persistent Depressive Disorder. PTSD Diagnosis Code(s):: f34.1; f43.12 - Estimated LOS Estimated LOS (in weeks):: 6 Problem/Goal #1 - Problem/Goal #1 Stated Goal:: Client will decrease depressive symptoms, isolation, hopelessness, worthlessness,and agitation due to Persistent Depressive Disorder Intensive Outpatient Program. Description of Barriers: Hx of poor follow-through, poor motivation, transportation obstacles, Functional Impact: Mental health symptoms impacting daily functioning. Unable to drive due to psuedo-seizures and dissociative states. Has not consistenly held a job due to reported depression, anxiety, and dissociation. - Objectives Objective #1 Stated Objective: Client will identify 2-3 triggers which exacerabte his depression, isolation, and irritability. Will also identifiy 2-3 coping skills to reduce depressive symptoms. Will decrease depression scores on DSM-5 cross- cutting scale Interventions: Through individual and group counseling will help pt identify triggers and teach client various coping strategies to effectively cope with depressive symptoms. Discharge Criteria: Client will have achieved this goal when can identify at least 2 triggers and verbalize two healthy coping strategies. Will note decrease in depressive scores on DSM-5 cross-cutting scales. Target Date: 07/24/19 Review Date: 07/10/19 Objective #2 Stated Objective: Identify at least 2-3 negative self-talk messages used to reinforce feelings of worthlessness and identify ways to replace and challenge these self-talk messages. We show a reduction in scores on depression scale on DSM-5 cross-cutting. Interventions: Individual and group counseling to help client identify distort ed, negative beliefs about self and replace with more realistic, affirmative messages. Discharge Criteria: Client will have achieved this goal when can verbalize at least 2 negative self-talk messages and effectively challenge those messages. Reduced score on depressive scale on DSM-5 cross-cutting Target Date: 07/24/19 Review Date: 07/10/19 Problem/Goal #2 - Problem/Goal #2 Stated Goal:: Stabilize anxiety level while increasing ability to function on daily basis due to PTSD and Anxiety. Will note a reduction in psuedo-seizures and disociative states. Description of Barriers: Hx of poor follow-through, poor motivation, transpo rtation obstacles, limited benefit from previous treatment Functional Impact: Mental health symptoms impacting daily functioning. Unable to drive due to psuedo-seizures and dissociative states. Has not consistenly held a job due to reported depression, anxiety, and dissociation. - Objectives Objective #1 Stated Objective: Pt. will be able to better define disociative states or zone outs and how it is related to PTSD. Pt will track number of times these zone outs occur Pt. will be able to identify 2-3 self-talk statements and coping skills to reduce number of episodes. Reduction in anxiety on DSM-5 cross-cutting scale. Interventions: Through individual and group counseling will provide education on psuedo-seizures, disociative states, and there relation to PTSD/overhwelming emotions. Discharge Criteria: Pt. will be able to define disociative states and psuedo- seizures and how it relates to PTSD and overhwelming emotions. Will be able to identify ways to combat and manage symptoms. Reduction in number of occurences and on anxiety scales on DSM-5 cross-cutting scale. Target Date: 07/24/19 Review Date: 07/10/19 Objective #2 Stated Objective: Client will learn and implement 2-3 problem solving strategies to realistically addressing worries and reduce avoidance. Interventions: Through individual and group counseling will teach client problem-solving strategies involving defining a problem, brainstorming solutions, selecting and implementing various solutions. Discharge Criteria: Client will have achieved this goal when can verbalize at least two problem solving strategies and utilize the strategies to realistically address worries. Target Date: 07/24/19 Review Date: 07/10/19
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
--- NOTE | 2019-06-18 12:11 | BH.MDN_ITS ---
Multi-Disciplinary Note - Note 60-min Individual Time Started:: 11:10 Date: 06/18/19 Purpose of session/treatment goals addressed:: Utilzed session to meet with pt to discuss treatment plan goals, review hx, and discuss progress in IOP. Eye Contact:: Good Motor Activity:: Appropriate Appearance:: Neat Speech:: Appropriate Mood:: Anxious, Depressed Affect:: Full Thoughts:: Linear, Logical, No evidence of hallucinations/delusions noted Staff Interventions:: Utilized DC techniques to elicit change behaviors. Developed treatment plan goals. [place] more about previous counseling and triggering events. Client Response:: Pt reports that he is feeling a little off today after the last group. He discussed that he experienced one of his staring spells which was triggered by a discussion on aggressive communication styles and postures. He notes that this is not uncommon as he has these staring spells whenever he experiences conflict or arguements. Describes them as simply staring and zoning out and having little awareness of what is occuring. They appear to be a defense mechanism so he is not aware of a topic that is distressing to him. Notes distressing symptoms prior to these episodes so he is aware that he may zone out. Typically he slowly zones back in however does not remember much of what occured. Notes these typically lasts seconds to minutes however it takes a great deal out him emotionally. In the past he will leave the situation when begining to be stressed however thought it would be disrespectful. He was assured that he could step out of group with no consequences. Talked at length how he experiences emotions to a great extent to everyone else. Talked about setting boundaries with his bio-family (mother, father, brohter, and sisters) as they cause significant distress and conflict. Relationship with is going well. Feels that he is progressing and less stressed since court hearings regarding daughter. Talked with counselor on treatment plan goals and reviewed psychiatrist treatment plan. Risks/Concerns:: No risks or concerns noted. Progress Toward Goals/Plan:: Progress noted over the past 2 weeks per pt report. No pseudo-seizures in 2 weeks. Relationship with , ex-, and kids is improving. Less stress. Attending program consistenly. Medication compliant. Setting boundaries. Continues to have difficulty functioning on daily basis. Small stressors and conflict result in zoning out and irritability, anxiety, and isolation. Through talking with patient even discussing anger and agressive communication styles elicted zoning out. Outside therapist has been addressing this with little progress and some esculation. Call out to her to discuss. Will continue in IOP to prevent decompensation, maintain safety, and improve functioning Time Stopped:: 12:00
--- NOTE | 2019-06-19 10:34 | BH.COMM ---
Communication Note - Communication with Client Communication Note: Pt called to cancel IOP for today and tomorrow. Vague on reasons.
--- NOTE | 2019-06-24 10:35 | BH.COMM ---
Communication Note - Communication with Client Communication Note: Pt left a message this AM cancelling IOP for tomorrow due to having an appt with outpatient psychiatrist and therapist. Pt has cancelled 3 consecutive days of IOP. Inconsistent attendance.
== END 2019-06-22 23:59 ==
LOC: BHIOP 09:00
PROVIDERS: PCP Student in an Organized Health Care Education/Training Program; Referring Provider Psychiatry & Neurology Psychiatry; Visit Provider Psychiatry & Neurology Psychiatry
DX: F34.1 Dysthymic disorder (principal); F44.5 Conversion disorder with seizures or convulsions; F98.8 Other specified behavioral and emotional disorders with onset usually occurring in childhood and adolescence; F43.10 Post-traumatic stress disorder, unspecified; H91.90 Unspecified hearing loss, unspecified ear; F10.11 Alcohol abuse, in remission; Z62.810 Personal history of physical and sexual abuse in childhood; Z79.899 Other long term (current) drug therapy
CPT/HCPCS: H0035; 90837; 90853

== ENCOUNTER 2019-06-27 09:00 | Outpatient (RCR) | payer OTHER, SELFPAY ==
[2019-06-23 01:08] VITALS: BP 126/78; PULSE 68; RESP 18; TEMP 36.9
--- NOTE | 2019-06-27 09:00 | BH.SGPN.GN ---
Behaviors/Verbalizations/Mental Status: [] Eye contact is good. Motor activity is appropriate. Appearance is casual. Speech is Appropriate. Mood is anxious. Affect is congruent. Thoughts are linear and logical. No evidence of psychosis. Reviewed daily check in sheet and no reports of suicidal ideations or intent. Client Response/Progress/Benefit: [] Pt was an active participant in group discussion. Emotion for today is anxious. Daily symptom tracker notes 4/5 for panic and 3/5 for anxiety. Shared with the group increased isolation and avoidance in the past few days. Met with outpatient psychiatrist yesterday with some medication changes. Talked at length with conflict with certain family members which impacts his relationship with his . Struggles with managing difficulty people which often results in arguments and avoidance of family functions. Talked about an interaction a couple days ago in which he was unable to manage his anger. Limited progress noted per pt report. Benefited from group support, encouragement, and feedback. Will continue in IOP to prevent decompensation, stabilize stress and trauma triggers, and increase healthy coping. Narrative Note: []
--- NOTE | 2019-06-27 10:09 | BH.SGPN.GN ---
Behaviors/Verbalizations/Mental Status: []Client alert and oriented, casually dressed and groomed. Eye contact good. Motor activity appropriate. Speech within normal limits. Affect congruent, mood anxious, euthymic. Thoughts linear, logical, no signs of hallucinations or delusions. Client Response/Progress/Benefit: []Client responded well to session, attentive participant throughout, at times struggling to remain on topic with comments. Participated in group discussion to define and identify differences between internal and external conflict. Client reported ?conflict is necessary for personal growth and progress?. Client shared that difficulties in regulating his emotions or uncertainty in approach has led to issues in resolving conflicts in the past. Group reported the benefits of addressing conflict include personal growth, increased trust, safety, having needs be met, and preventing further consequences. Group identified and discussed consequences of not addressing conflict in healthy ways which included: decreased trust, damaged relationships, increased mental health symptoms, and additional conflict. Benefited as client was able to identify and define conflict as well as increase awareness of how conflict style impacts his mental health. Noted it has negatively impacted communication within relationships and resulted in feeling invalidated or further damaging trust in the past. Progress variable as shown by client?s report of improved sx however continues to struggle with consistent skill application and attendance. Will will continue IOP tx to promote insight and application of healthy skills, reduce mental health sx severity, and further improve daily functioning. Narrative Note: []
--- NOTE | 2019-07-02 11:00 | BH.COMM ---
Communication Note - Communication with Client Communication Note: Left message with this therapist this AM cancelling group. Message was distorted and it was difficulty to make out what pt was saying however it sounded as if he did not want to return to IOP all together. Called and left message with pt to clarify.
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
== END 2019-07-02 14:00 | disposition home or self-care (01) ==
LOC: BHIOP 09:00
PROVIDERS: PCP Student in an Organized Health Care Education/Training Program; Referring Provider Psychiatry & Neurology Psychiatry; Visit Provider Psychiatry & Neurology Psychiatry
DX: F34.1 Dysthymic disorder (principal); F43.12 Post-traumatic stress disorder, chronic; Z79.899 Other long term (current) drug therapy
CPT/HCPCS: H0035; 90853

== ENCOUNTER 2020-02-06 08:04 | Day surgery (SDC) | payer OTHER, SELFPAY ==
[2020-01-28 14:07] VITALS: BMI 35.1
--- NOTE | 2020-01-28 16:00 | RAD_ITS ---
STUDY: X-RAY CHEST REASON FOR EXAM: Male, 39 years old. chest pain, patient having heart cath next week TECHNIQUE: PA and lateral views of the chest. COMPARISON: 12/30/2015 FINDINGS: The lungs are clear and expanded. There is no demonstrated pleural abnormality. Normal size heart. Normal mediastinum and raul. Normal visualized pulmonary arteries. Normal visualized aortic arch and descending thoracic aorta. Normal visualized thoracic spine. Normal visualized ribs, clavicles, and shoulders. There is no demonstrated abnormality of the visualized soft tissue structures of the upper abdomen. RAD/Chest PA and Lateral IMPRESSION: Normal x-ray examination of the chest. Electronically Signed: Medardo Gonzalez MD (Brooks) at 9:12 EDT , Service support ,
[2020-01-28 16:52] LABS: International Normalized Ratio 1.1; Prothrombin Time (Protime)PT. 13.4 SECONDS (11.7-14.9)
[2020-01-28 16:53] LABS: Absolute Lymphocyte Count 1.53 X10^3/uL (0.83-4.51); Absolute Neutrophil Count 3.6 X10^3/uL (2.0-7.7); Basophil# 0.05 X10^3/uL; Basophil% 0.9 % (0-1); Eosinophil# 0.09 X10^3/uL; Eosinophils% 1.5 % (0-5); Hemoglobin 15.6 g/dL (13.0-16.5); Lymphocyte # 1.53 X10^3/ul (4.0); Lymphocyte % 26.2 % (19-41); Mean Corp Hgb Conc 33.9 g/dL (32-36); Mean Corpuscular Hgb 29.2 pg (27.0-32.0); Mean Platelet Vol. 10.6 fl (6.2-12.0); Monocyte# 0.53 X10^3/uL; Monocyte% 9.1 % (0-10); NRBC Flagged by Analyzer 0 % (0-5); Neutrophil # 3.62 X10^3/uL (2.7-7.7); Neutrophil % 61.8 % (47-70); Partial Thromboplast Time 24.5 Seconds (24.1-36.2); Platelet Count 195 K/mm3 (150-450); RBC Distribution Width CV 13.9 % (11.6-14.6); RBC Distribution Width SD 43.6 fl (35.1-43.9); Red Blood Count 5.35 M/mm3 (4.6-6.2); White Blood Count 5.9 K/mm3 (4.4-11.0)
[2020-01-28 17:11] LABS: Anion Gap 3 (5-15); BUN 13 mg/dL (7-18); BUN/Creat Ratio 13.9 RATIO (10-20); Calcium,Total 9.1 mg/dL (8.5-10.1); Chloride 109 mmol/L (98-107); Creatinine, Serum 0.93 mg/dL (0.70-1.30); EST Glomerular Filtration Rate 96 mL/min (>60); Est Glom Filt Rate - Afr Amer 116 mL/min (>60); Glucose 98 mg/dL (74-106); Potassium 4.2 mmol/L (3.5-5.1); Sodium Level 139 mmol/L (136-145)
[2020-02-05 08:01] VITALS: BMI 35.1
--- NOTE | 2020-02-06 10:13 | CL.D_ITS ---
Patient Name: LATOYA ESPINOZA Study Date: 02/06/2020 Performing: Jaxson Sebastian MD Ht: 70.86 inches 180 cm : 1980 Wt: 251.33 lbs 114 kg Age: 39 Gender: male BSA: 2.32 PROCEDURE(S) PERFORMED [id number]/LV CLINICAL PROFILE AND INDICATIONS Indications: Suspected CAD Heart Failure: None Stress/Imaging Standard Exercise Stress Test: Yes Result: Positive Intermediate Risk CAD Presentations: Unstable angina. CONCLUSIONS No significant obstructive CAD. Preserved EF. No significant or MR RECOMMENDATIONS DESCRIPTION OF PROCEDURE The patient arrived to the procedure lab. The risks and benefits of the procedure as well as a full d escription of our services here and current unavailability of surgical backup were fully explained to the patient and/or their significant other prior to the catheterization. The Timeout was completed, verifying the correct patient and procedure. The patient's procedural site was prepped and draped in the usual fashion. Local anesthetic was given subcutaneously to right radial region with Lidocaine 2% . Using a modified Seldinger technique, arterial access was obtained via the right radial artery, a 6 Fr sheath was inserted. Left Coronary Artery selective angiography was performed in multiple views u sing a 5 Fr. JL3.5 catheter. Left Ventriculography was performed in HOANG projection using a 5 Fr. JR 4 .0 catheter. LV to AO pullback pressures were then recorded. Right Coronary Artery selective angiogra phy was then performed in multiple views using a 5 Fr. JR 4 catheter.The arterial sheath was pulled and a TR Band was applied for hemostasis. The arterial sheath was pulled and a TR Band was applied for hemostasis 12cc air inserted CORONARY ANGIOGRAPHY DOMINANCE: Co- Dominant LEFT HEART ASSESSMENT Left Ventricular Ejection Fraction: by LV Gram 55 % Normal LV wall motion LEFT MAIN: No significant disease noted LEFT ANTERIOR DESCENDING ARTERY: No significant disease noted. 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 CIRCUMFLEX ARTERY: No significant disease noted RIGHT CORONARY ARTERY: No significant disease noted VALVE FINDINGS: No Aortic Valve Stenosis No Mitral Insufficency COMPLICATIONS No Complications PROCEDURE MEDICATIONS Versed 2 mg IV Fentanyl 50 mcg IV Oxygen: 2 L/min via nasal cannula Heparin given IA 02/06/2020 09:37:28 Verapamil 2.5mg, Ntg 100mcgs, 3000 units of Heparin given IA 02/06/2020 09:37:28 SUMMARY OF HEMODYNAMIC DATA Time AIR REST ECG 08:21:35 AO 98/77 (87) SA 09:39:49 LV 150/-5, 17 09:43:22 LV 134/-4, 19 09:43:28 LV 121/4, 13 09:44:09 LVp 126/3, 12 09:44:17 AOp 117/82 (100) 09:44:22 ECG 09:57:21 Signed By Jaxson Sebastian MD On 02/06/2020 10:12:30 Jaxson Sebastian MD
== END 2020-02-06 11:30 | disposition home or self-care (01) ==
LOC: CLSP 08:05
PROVIDERS: PCP Student in an Organized Health Care Education/Training Program; Referring Provider Specialist; Visit Provider Specialist
DX: R07.9 Chest pain, unspecified (principal); R93.1 Abnormal findings on diagnostic imaging of heart and coronary circulation; G47.33 Obstructive sleep apnea (adult) (pediatric); F43.10 Post-traumatic stress disorder, unspecified; F41.9 Anxiety disorder, unspecified; F34.1 Dysthymic disorder; F98.8 Other specified behavioral and emotional disorders with onset usually occurring in childhood and adolescence; Z79.899 Other long term (current) drug therapy
CPT/HCPCS: 36415; 71046; 80048; 85025; 85610; 85730; 93458; 99152; J7040; C1769; C1894; Q9967

== ENCOUNTER 2020-02-06 21:31 | Emergency (ER) | payer OTHER, SELFPAY ==
[2020-02-05 08:01] VITALS: BMI 35.1
[2020-02-06 21:32] VITALS: BP 138/98; PULSE 79; RESP 17; TEMP 36.4; O2SAT 97; BMI 35.6
--- NOTE | 2020-02-06 22:44 | ED.DCSUM_ITS ---
History of Present Illness Chief Complaint: Upper Extremity Injury Informant: Patient Onset: Hours - 6-7 Context: Gradual Onset Timing: Continuous Quality: sore Location: R thenar eminence Current Severity: Mild Maximum Severity: Mild Worsened by: nothing Relieved by: nothing Associated Symptoms: tingling all R fingertips Narrative: Patient had a heart cath this morning, 2 rule out coronary disease since he has had dyspnea and syncope associated with panic attacks, his heart cath was normal, it was performed through the right radial artery in his wrist. About 8- 10 hours after the procedure, he developed some discomfort in the thenar dmitry nence area and tingling in all of his fingertips. He states it waxes and wanes. He has had no cold hands or cyanosis that he notes. He states he has had some tingling on the back of his hand as well but that is not there right now. When he closes his hand, the tingling goes away when he opens it he gets better. He does not have any other symptoms. There has been no bleeding or discharge from the wrist. He denotes no acute focal swelling, but thinks the whole area seems mildly diffusely swollen in his hand and wrist. - Past Medical History (1) Anxiety Status: Chronic (2) JESSIKA (obstructive sleep apnea) Status: Chronic (3) Post traumatic stress disorder (PTSD) Status: Chronic Past Medical History - Allergies and Home Meds Allergies/Adverse Reactions: Allergies betamethasone Allergy (Intermediate, Verified 02/06/20 21:34) Edgy, hyper pineapple Allergy (Intermediate, Verified 02/06/20 21:34) GI upset adhesive tape Allergy (Verified 02/06/20 21:34) Rash Milk Containing Products Adverse Reaction (Verified 02/06/20 21:34) Diarrhea Primary Care Physician: Colin Mccollum DO [Primary Care Provider] - Lives: Spouse/ Significant Other Smoking Status: Never smoker Review of Systems General: Denies: Chills, Fever, Sweats Cardiovascular: Denies: Chest pain, Palpitations Respiratory: Denies: Dyspnea, Cough, Dyspnea on exertion Gastrointestinal: Denies: Nausea, Vomiting Musculoskeletal: Reports: Swelling, Extremity Pain. Denies: Neck pain, Back pain Skin: Denies: Rash, Wounds Neurological: Reports: Parasthesia. Denies: Headache, Weakness Physical Exam Vital Signs/Narrative: Vital Signs Temp Pulse Resp BP Pulse Ox 02/06/20 21:32 97.6 F L 79 17 138/98 H 97 Inital Vital Signs reviewed: Yes General: Well nourished, Well developed, No Acute Distress Head: Normocephalic, Atraumatic Extremities: Nontender, No edema, - - Full range of motion throughout all digits and the right hand and wrist. Excellent palpable ulnar pulse and radial pulse just distal to the puncture site. Brisk cap refill all fingertips. Hand is warm, no cyanosis or color abnormality or petechia, splinter hemorrhages. Skin: Normal color, No rash, No Trauma, - - Bandage over right volar wrist at the radial aspect Neurological: Alert, Oriented x3, Cranial nerves II-XII grossly intact, Normal Strength, Parasthesia - Mild, right fingertips all fingers affected equally. The dorsum of the hand is not affected at all and sensation there is normal as is throughout the rest of his sensory exam. Motor exam normal. Psychological: Normal affect, Normal Mood Diagnostic/Tx/Re-eval - Medical Decision Making Discussed with Dr. Adorno on for cardiology. He did not do the heart cath and does not know the patient personally, but since his exam is normal, he agrees that the patient does not meet any indication for an emergent CT angiography to evaluate perfusion. He agrees that this may be due to postprocedural swelling that may be giving some nerve irritation although would have to irritate more than 1 nerve here, he has had symptoms in all nerve distributions, but currently does not have any in the radial distribution. He recommends obtaining an ultrasound to rule out pseudoaneurysm, knowing that the exam is not available at this time which is almost 11 PM. We will set the patient up for that in the morning, and he is advised to return to the ER immediately in the meantime if his hand goes cold, cyanotic, or other concerning symptoms. ED Disposition - Plan for ED Patient: Disposition: Home or Assisted Living Diagnosis: Right hand paresthesia Instructions: ED Paraesthesias Referrals: Colin Mccollum DO [Primary Care Provider] - Additional Instructions: Return to ER in the morning, we will schedule you for an ultrasound of your right wrist, follow-up with cardiology if your symptoms persist and the ultrasound is normal.
[2020-02-06 22:56] VITALS: BP 132/60; PULSE 78; RESP 18
== END 2020-02-06 22:57 | disposition home or self-care (01) ==
PROVIDERS: Emergency Provider Emergency Medicine; PCP Student in an Organized Health Care Education/Training Program
DX: R20.2 Paresthesia of skin (principal); Z98.890 Other specified postprocedural states; F41.9 Anxiety disorder, unspecified; F43.10 Post-traumatic stress disorder, unspecified; Z79.899 Other long term (current) drug therapy
CPT/HCPCS: 99281; 99284

== ENCOUNTER → 2020-02-07 | Outpatient (CLI) | payer OTHER, SELFPAY ==
[2020-02-06 21:32] VITALS: BMI 35.6
== END | disposition home or self-care (01) ==
LOC: CVS 13:53
PROVIDERS: PCP Student in an Organized Health Care Education/Training Program; Referring Provider Emergency Medicine; Visit Provider Emergency Medicine
DX: R20.2 Paresthesia of skin (principal); R52 Pain, unspecified; Z98.890 Other specified postprocedural states
CPT/HCPCS: 93931

== ENCOUNTER 2020-02-12 19:31 | Emergency (ER) | payer OTHER, SELFPAY ==
[2020-02-12 19:33] VITALS: BP 155/101; PULSE 111; RESP 17; RESP 18; TEMP 35.9; O2SAT 96; BMI 34.1
== END 2020-02-12 19:44 | disposition left against medical advice (07) ==
PROVIDERS: Emergency Provider Emergency Medicine; PCP Student in an Organized Health Care Education/Training Program
DX: R56.9 Unspecified convulsions (principal)

== ENCOUNTER → 2020-03-12 10:43 | Outpatient (CLI) | payer OTHER, SELFPAY ==
[2020-03-10 13:38] VITALS: BMI 34.9
== END ==
PROVIDERS: PCP Student in an Organized Health Care Education/Training Program; Referring Provider Specialist; Visit Provider Specialist
DX: R00.2 Palpitations (principal)
CPT/HCPCS: 93225; 93226

== ENCOUNTER → 2020-04-09 09:09 | Outpatient (CLI) | payer OTHER, SELFPAY ==
[2020-04-09 09:04] VITALS: BMI 34.9
== END ==
PROVIDERS: PCP Student in an Organized Health Care Education/Training Program; Referring Provider Specialist; Visit Provider Specialist
DX: R69 Illness, unspecified (principal)

== ENCOUNTER 2020-04-10 08:00 | Day surgery (SDC) | payer OTHER, SELFPAY ==
[2020-03-10 13:38] VITALS: BMI 34.9
[2020-04-09 09:04] VITALS: BMI 34.9
[2020-04-09 09:34] LABS: Absolute Lymphocyte Count 1.58 X10^3/uL (0.83-4.51); Absolute Neutrophil Count 3.6 X10^3/uL (2.0-7.7); Basophil# 0.04 X10^3/uL; Basophil% 0.7 % (0-1); Eosinophil# 0.08 X10^3/uL; Eosinophils% 1.4 % (0-5); Hematocrit 47.2 % (40-54); Hemoglobin 16.4 g/dL (13.0-16.5); Lymphocyte # 1.58 X10^3/ul (4.0); Lymphocyte % 26.9 % (19-41); Mean Corp Hgb Conc 34.7 g/dL (32-36); Mean Corpuscular Hgb 29.3 pg (27.0-32.0); Mean Corpuscular Volume 84.3 fL (80-94); Mean Platelet Vol. 9.9 fl (6.2-12.0); Monocyte# 0.49 X10^3/uL; Monocyte% 8.3 % (0-10); NRBC Flagged by Analyzer 0 % (0-5); Neutrophil # 3.64 X10^3/uL (2.7-7.7); Neutrophil % 61.8 % (47-70); Platelet Count 182 K/mm3 (150-450); RBC Distribution Width CV 13.9 % (11.6-14.6); RBC Distribution Width SD 42.8 fl (35.1-43.9); White Blood Count 5.9 K/mm3 (4.4-11.0)
[2020-04-09 09:54] LABS: International Normalized Ratio 1.1; Partial Thromboplast Time 25.7 Seconds (24.1-36.2); Prothrombin Time (Protime)PT. 13.5 SECONDS (11.7-14.9)
[2020-04-09 09:57] LABS: Anion Gap 7 (5-15); BUN 13 mg/dL (7-18); BUN/Creat Ratio 13.3 RATIO (10-20); Calcium,Total 8.7 mg/dL (8.5-10.1); Chloride 103 mmol/L (98-107); Creatinine, Serum 0.98 mg/dL (0.70-1.30); EST Glomerular Filtration Rate 90 mL/min (>60); Est Glom Filt Rate - Afr Amer 109 mL/min (>60); Estimated Creatinine Clearance 108.85 ml/min; Glucose 113 mg/dL (74-106); Potassium 3.8 mmol/L (3.5-5.1); Sodium Level 137 mmol/L (136-145)
--- NOTE | 2020-04-10 05:59 | HP_ITS ---
HPI HPI History of Present Illness Details: 01/28/2020: 39-year-old male referred to us because of chest pain. The chest pain is retrosternal and left-sided, happens with stress and exertion. There is sometimes he does not have chest pain with exertion. However with strenuous exertion he does get the chest pain. He underwent stress testing during which he had chest pain on exertion. This chest pain is similar to what he has been feeling at home. Patient also states that he has had a couple of episodes of syncope. He is a poor historian but states that he was exercising when he passed out.He had a 2D echo at [facility] which revealed preserved EF and RV dilatation. RV function was preserved 03/10/2020: Patient states that occasionally he gets chest discomfort with anxiety. He gets episodes of palpitations as well. These episodes happen on a daily basis. He gets 2-3 episodes a day. They last about 5 minutes. Patient does drink soda on a regular basis. 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 Accompanied by: None Is patient in pain?: No Allergies betamethasone Allergy (Intermediate, Verified 03/10/20 13:40) Edgy, hyper pineapple Allergy (Intermediate, Verified 03/10/20 13:40) GI upset adhesive tape Allergy (Verified 03/10/20 13:40) Rash Milk Containing Products Adverse Reaction (Verified 03/10/20 13:40) Diarrhea Medications Dextroamphetamine/Amphetamine [Dextroamp-Amphet ER 20 mg Cap] 1 cap PO DAILY 02/28/19 [History Confirmed 03/10/20] fluoxetine 20 mg capsule 40 mg PO DAILY 01/23/20 [History Confirmed 03/10/20] gabapentin 100 mg capsule 100 mg PO QHS 03/10/20 [History Confirmed 03/10/20] PFSH Medical History Abnormal stress test (Chronic) JESSIKA (obstructive sleep apnea) (Chronic) Post traumatic stress disorder (PTSD) (Chronic) Anxiety (Chronic) ADHD (Chronic) Conversion disorder (Chronic) Diverticulitis (Chronic) Gilbert's disease (Chronic) Persistent depressive disorder (Chronic) Pseudoseizure (Chronic) Right ventricular dilation (Chronic) ADD (attention deficit disorder) (Inactive) Surgical History History of left heart catheterization (Chronic 02/06/20) History of anal fissures (Resolved) History of bladder repair surgery (Resolved) History of left inguinal hernia repair (Resolved) History of right inguinal hernia repair (Resolved) History of toe surgery (Resolved) History of umbilical hernia repair (Resolved) Family History Mother Hypertension Diabetes Father Diabetes Sister Diabetes Brother Hypertension Grandfather Colon cancer Social History (Updated 03/10/20 @ 14:[address] Clarence Sebastian MD) Smoking Status: Never smoker alcohol intake: never substance use type: does not use caffeine: Yes Type: carbonated beverages Number of servings: 3 ROS Const Const: Negative for fatigue, weakness, headache(s), frequent falls, difficulty sleeping or excessive sweating Eyes Eyes: Negative for loss of peripheral vision, transient loss of vision, blurry vision, double vision or tunnel vision ENT ENT: Positive for balance problems; negative for headache(s), dizziness or Nosebleed/epistaxis Cardio Chest Pain: Yes Frequency: more than once a day Character: tightness Palpitations: Yes feels like its: fast Edema: None Muscle aches with walking: None Resp Respiratory: Negative for SOB with activity, SOB at rest, SOB orthopnea\SOB lying down, Cough or paroxysmal nocturnal dyspnea GI GI: Negative nausea, vomiting, heartburn or black,tarry stools : Negative for hematuria Musc Musc: Positive for balance problems; negative for muscle aches/ myalgia, muscle weakness or joint pain Skin Skin: Negative non-healing lesions, rash or unusual bruising Neuro Neuro: Negative for dizziness, lightheadedness, near syncope, syncope, frequent falls, headache(s), weakness, blurry vision, double vision or lack of coordination Dominic Hematologic/Lymphatic: Negative for easy bleeding or easy bruising Endo Endo: Negative for fatigue, excessive sweating or increased thirst/drinking Psych Psych: Negative for anxiety or depression Allergy Allergy/Immunology: Negative for hives, Negative for rash Cardiology Exam Const Appearance: cooperative; negative acute distress Nutritional Appearance: well nourished Head Head: normocephalic and atraumatic Ears: hearing grossly normal bilaterally Nose: external nose normal Face and Sinus: face symmetric Mouth: moist mucous membranes Teeth and gingiva: fair dentition Eyes General: appearance normal, both eyes and all related structures Eyelids: eyelids normal Conjunctivae: conjunctivae normal Neck Neck: trachea midline and no JVD Chest Chest inspection: symmetric chest movement; negative pursed lip breathing Auscultation: Bilateral: Clear to Auscultation Cardio Rate: regular rate Rhythm: regular rhythm Heart sounds: S1 normal and S2 normal No Murmurs GI GI: normal to inspection Neuro General: alert, awake and oriented x3 Gait: Negative ataxic Skin Skin: no rashes or lesions noted; negative atrophy or jaundice Extremities Pulses: Normal: Right Posterior Tibial Pulse, Left Posterior Tibial Pulse Lower Extremity Edema: None: Bilateral Musculoskel Musculoskeletal: No joint tenderness Psych Psychological: normal affect Assessment & Plan 1. Chest pain, unspecified type R07.9 Plan Coronary angiography did not reveal significant stenoses. 2. Palpitations R00.2 Plan Will check a Holter. Patient had RV dilatation on 2D echo and is getting cardiac MRI. Orders Orders: Cardiac Holter Monitor, Set-Up Today Plan Detail Follow Up 6 Weeks Coding Level of Care Code Off vis,est,level 3 Diagnoses Chest pain, unspecified type R07.9 ??Chest pain type: unspecified Palpitations R00.2 Coding Level of Care Code Off vis,est,level 3 Diagnoses Chest pain, unspecified type R07.9 ??Chest pain type: unspecified Palpitations R00.2 Supplemental Info Supplemental Information Diagnostics Electrocardiogram 01/28/20 Cardiac Catheterization 02/06/20 Chest X-Ray 01/28/20
[2020-04-10 10:06] LABS: Blood Gas Specimen Type VEN; VBG BASE EXCESS 1 mmol/L (-1.0-3.5); VBG Bicarbonate 25 mmol/L (22-26); VBG PO2 40 mmHg (25-40); VBG SO2 77 % (50-70); VBG TCO2 26 mmol/L (23-33); VBG pH 7.43 (7.32-7.42)
[2020-04-10 10:06] LABS: Blood Gas Specimen Type VEN; VBG BASE EXCESS 2 mmol/L (-1.0-3.5); VBG Bicarbonate 26 mmol/L (22-26); VBG PO2 37 mmHg (25-40); VBG SO2 73 % (50-70); VBG TCO2 27 mmol/L (23-33); VBG pCO2 38.9 mmHg (41-51); VBG pH 7.43 (7.32-7.42)
[2020-04-10 10:10] LABS: Blood Gas Specimen Type VEN; VBG BASE EXCESS 1 mmol/L (-1.0-3.5); VBG Bicarbonate 25 mmol/L (22-26); VBG PO2 38 mmHg (25-40); VBG SO2 74 % (50-70); VBG TCO2 26 mmol/L (23-33); VBG pCO2 36.9 mmHg (41-51); VBG pH 7.44 (7.32-7.42)
--- NOTE | 2020-04-10 17:09 | CL.D_ITS ---
Patient Name: LATOYA ESPINOZA Study Date: 04/10/2020 Performing: Jaxson Sebastian MD Ht: 72 inches 182 cm : 1980 Wt: 253.9 lbs 115 kg Age: 39 Gender: male BSA: 2.35 PROCEDURE(S) PERFORMED [id number] ONLY CLINICAL PROFILE AND INDICATIONS Indications: Other Heart Failure: None Stress/Imaging Stress/Image Study Performed: No CAD Presentations: Symptom unlikely to be ischemic. CONCLUSIONS Normal Right heart and wedge pressures. No evidence of intracardiac shunt. RECOMMENDATIONS DESCRIPTION OF PROCEDURE The patient arrived to the procedure lab. The risks and benefits of the procedure as well as a full d escription of our services here and current unavailability of surgical backup were fully explained to the patient and/or their significant other prior to the catheterization. The Timeout was completed, verifying the correct patient and procedure. The patient's procedural site was prepped and draped in the usual fashion. Local anesthetic was given subcutaneously to right brachial region with Lidocaine 2%. Using a modified Seldinger technique, Venous access was obtained via the left brachiocephalic ve in, with Micropuncture set exchanged from an IV angiocath A 7Fr thermal dilution catheter was inserte d and right heart pressures were recorded, it was then advanced to PA position for cardiac outputs. O 2 saturations were then obtained. The Thermal dilution catheter was then removed.The venous sheath wa s then pulled and manual compression applied until hemostasis achieved CORONARY ANGIOGRAPHY RIGHT HEART ASSESSMENT PW: 8/3 5 PA: 25/10 11 RV: 20/4 6 RA: 5/4 4 COMPLICATIONS No Complications PROCEDURE MEDICATIONS Fentanyl 50 mcg IV Versed 1 mg IV Oxygen: 2 L/min via nasal cannula SUMMARY OF HEMODYNAMIC DATA Time AIR REST ECG 08:21:18 PW 8/3 (5) PV 09:56:00 PA 25/10 (11) PA 09:58:49 RV 20/4, 6 10:01:05 RA 5/4 (4) SV 10:02:53 ECG 10:17:50 Label % O2 Pres/Loc Time AIR REST RV 73 10:09:19 PA 77 PA 10:09:25 RA 74 SV 10:09:30 Signed By Jaxson Sebastian MD On 04/10/2020 17:08:44 Jaxson Sebastian MD
== END 2020-04-10 10:05 | disposition home or self-care (01) ==
LOC: CLSP 08:01
PROVIDERS: PCP Student in an Organized Health Care Education/Training Program; Referring Provider Specialist; Visit Provider Specialist
DX: R07.9 Chest pain, unspecified (principal); R00.2 Palpitations; R93.1 Abnormal findings on diagnostic imaging of heart and coronary circulation; R94.39 Abnormal result of other cardiovascular function study; I27.20 Pulmonary hypertension, unspecified; I28.8 Other diseases of pulmonary vessels; I77.810 Thoracic aortic ectasia
CPT/HCPCS: 36415; 80048; 82803; 85025; 85610; 85730; 93005; 93451; 99152; 99153; C1751; C1894

== ENCOUNTER 2020-06-10 13:03 | Emergency (ER) | payer OTHER, SELFPAY ==
[2020-04-09 09:04] VITALS: BMI 34.9
[2020-06-10 13:10] VITALS: BP 155/96; PULSE 119; RESP 22; TEMP 37.4; O2SAT 93; BMI 36.7
--- NOTE | 2020-06-10 13:19 | CT_ITS ---
STUDY: CT BRAIN WITHOUT CONTRAST REASON FOR EXAM: Male, 40 years old. FALL RADIATION DOSAGE (If Supplied By Facility): CTDIvol = ( 44.99 ) mGy, DLP = ( 880.47 ) mGycm TECHNIQUE: Transaxial CT imaging of the brain was performed without administration of intravenous contrast material. Individualized dose optimization techniques were used for this CT. COMPARISON: Comparison is made with prior study dated 07/15/2018. FINDINGS: Normal soft tissue structures. Normal calvarium. Normal size ventricles and extra-axial spaces for the patient''s age. Normal white matter tracts of the cerebral hemispheres. Normal basal ganglia and thalami. Normal brainstem. Normal cerebellum. There is no intracranial hemorrhage. There are no findings of an acute ischemic infarction. Mucosal polyps or retention cysts along the inferior aspect of the maxillary sinuses bilaterally. CT/Brain/Head without Contrast IMPRESSION: Normal unenhanced CT scan of the brain. Mucosal retention cysts or polyps at the base of both maxillary sinuses. Electronically Signed: Terry Riddle MD at 13:49 EST , Service support ,
--- NOTE | 2020-06-10 13:19 | EKG12_ITS ---
Test Reason : SYNCOPE Blood Pressure : / mmHG Vent. Rate : 121 BPM Atrial Rate : 121 BPM P-R Int : 174 ms QRS Dur : 090 ms QT Int : 304 ms P-R-T Axes : 025 -71 027 degrees QTc Int : 431 ms Sinus tachycardia Left anterior fascicular block Cannot rule out Anterior infarct , age undetermined Abnormal ECG Confirmed by JAMEE LOPEZ, NISHA ([id number]), technical editor GUALBERTO FRANCES ([id number]) on 06/15/2020 10:42:10 AM Referred By: MAINE Confirmed By:NISHA MANCUSO MD
--- NOTE | 2020-06-10 13:20 | ED.VIS.INJ ---
History of Present Illness Chief Complaint: Fall Informant: Patient, Significant Other Onset: Hours Mechanism/Context: Blunt Injury, Fall Quality of Pain: Dull, Aching Location: Head and left-sided neck Current Severity: Mild Maximum Severity: Moderate Worsened by: Trauma Relieved by: Nothing Associated Symptoms: Loss of consciousness, Amnesia. Negative for: Parasthesias, Weakness, Loss of function, Inability to ambulate Length of loss of consciousness: Potentially 10 to 15 minutes Narrative: Patient is a 40-year-old gentleman with history of ADHD, depression and anxiety who presents via ambulance after fall. He states he was taking out his garbage. He does not remember anything else. According the a neighbor called because he was looking on the ground unresponsive. She states when he did answer her phone he did not recognize her voice and did not know who she was. He was not acting appropriately. He does complain of headache and left-sided posterior neck pain. There is no prior history of concussion. 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 Patient states he does not know how long he was out. He has no recall of falling. He states his left side hurts. He denies shortness of breath or chest pain. He does report nausea without vomiting. He is not on an antiplatelet or anticoagulant. Prior meds were reviewed and allergies were reviewed. Prior similar symptoms: No Recent Illness/Hospitalization: No - Past Medical History (1) History of psychogenic seizure Status: Acute (2) Mild dilation of ascending aorta Status: Acute Comment: 4 cm at the level of the sinuses of valsalva. Cardiac MRI done @ [facility] 04/03/20 (3) Pulmonary hypertension Status: Acute Comment: Cardiac MRI done @ [facility] 04/03/20 (4) Syncope Status: Acute (5) Anxiety Status: Chronic (6) JESSIKA (obstructive sleep apnea) Status: Chronic (7) Post traumatic stress disorder (PTSD) Status: Chronic Past Medical History - Allergies and Home Meds Allergies/Adverse Reactions: Allergies betamethasone Allergy (Intermediate, Verified 06/10/20 13:14) Edgy, hyper pineapple Allergy (Intermediate, Verified 06/10/20 13:14) GI upset adhesive tape Allergy (Verified 06/10/20 13:14) Rash Milk Containing Products Adverse Reaction (Verified 06/10/20 13:14) Diarrhea Primary Care Physician: Mccollum,Colin, DO [Primary Care Provider] - Prior records reviewed: Yes Surgical History: noncontributory Lives: Spouse/ Significant Other Smoking Status: Never smoker Alcohol: None Drugs: None Review of Systems General: Denies: Chills, Fever, Sweats Eyes: Reports: Visual changes - bilaterally. Denies: Blurred Vision - bilaterally, Diplopia ENT: Reports: - - Denies epistaxis.. Denies: Bilateral ear pain, Rhinorrhea, Sore throat Cardiovascular: Denies: Chest pain, Palpitations Respiratory: Denies: Dyspnea, Cough, Dyspnea on exertion Gastrointestinal: Denies: Abdominal pain, Nausea, Vomiting, Diarrhea, Melena, Hematochezia Genitourinary: Denies: Dysuria, Hematuria, Frequency Musculoskeletal: Reports: Neck pain, Extremity Pain. Denies: Myalgias, Arthralgias, Back pain, Swelling Skin: Denies: Rash, Wounds Neurological: Reports: Headache. Denies: Weakness, Parasthesia, Numbness Psych: Reports: Depression, Anxiety Hematologic: Denies: Easy bruising Physical Exam Vital Signs/Narrative: Vital Signs Temp Pulse Resp BP Pulse Ox 06/10/20 13:10 99.3 F H 119 H 22 H 155/96 H 93 Inital Vital Signs reviewed: Yes General: Well nourished, Well developed Head: Normocephalic, Atraumatic Eyes: Perrl, EOMI, - - Conjunctival hemorrhage.. Negative for: Pale conjunctiva, Scleral icterus ENT: TM's clear, No hemotympanum or drainage, No trauma. Negative for: Hemotympanum, Otorrhea, Nasal trauma, Nasal septal hematoma Neck: Nontender, Full ROM, Paraspinal Tenderness - Left side. Negative for: Spinal Tenderness Cardiovascular: Regular rhythm, No murmurs, Normal S1, Normal S2, Tachycardia Respiratory: No distress, CTA bilaterally, Chest nontender Abdomen: Soft, Nontender, Nondistended, Normal bowel sounds Rectal: Deferred, - - Pelvis is nontender. Back: Nontender. Negative for: CVA Tenderness - Right, CVA Tenderness - Left Skin: Normal color, No rash, No Trauma. Negative for: Cyanosis, Diaphoresis, Jaundice Neurological: Alert, Oriented x3, Cranial nerves II-XII grossly intact, Normal Strength, Normal Sensation Psychological: Normal affect Diagnostic/Tx/Re-eval Impressions Brain CT 06/10/20 13:19 IMPRESSION: Normal unenhanced CT scan of the brain. Mucosal retention cysts or polyps at the base of both maxillary sinuses. Electronically Signed: Terry Riddle MD at 13:49 EST , Service support , 06/10/20 13:19 Brain/Head without Contrast [CT] Stat T was reviewed by me and there is no evidence of intracranial bleed and there is no evidence of skull fracture. - EKG Initial EKG Interpretation: Sinus Tachycardia - Sinus tachycardia with a ventricular rate of 121. [place] interval is 174 ms. Cures duration 90 ms. Patient has evidence of a left anterior fascicular block and axis to the left. QT interval is 304 ms. Disagree with computer read of anterior infarct. - Medical Decision Making With head trauma altered mental status and loss of conscious potentially greater than 10 to 15 minutes per the [place] CT head rule imaging is indicated. CT of the head was ordered. Because he was tachycardic there is obtained an EKG and reveals a sinus tachycardia. He was made NPO. 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 You may have problems with sleep, concentrating, vision, nausea for several days if not longer. 2. Avoid any strenuous activity or activity that causes her symptoms to worsen. 3. Avoid anything that puts you at risk for hitting your head prior to return to baseline/normal
[2020-06-10] MEDS: Ondansetron 4 MG/2 ML Vial IV (13:26)
[2020-06-10 14:21] VITALS: BP 131/98; PULSE 118; RESP 18
== END 2020-06-10 14:23 | disposition home or self-care (01) ==
PROVIDERS: Emergency Provider Emergency Medicine; PCP Student in an Organized Health Care Education/Training Program
DX: S06.9X1A Unspecified intracranial injury with loss of consciousness of 30 minutes or less, initial encounter (principal); W18.30XA Fall on same level, unspecified, initial encounter; Y93.89 Activity, other specified; Y92.008 Other place in unspecified non-institutional (private) residence as the place of occurrence of the external cause; Y99.8 Other external cause status
CPT/HCPCS: 70450; 93005; 96374; 99285; A4216; J2405